=== PATIENT | female | born 1990 | race African-American/Black ===

== ENCOUNTER 2021-01-15 19:31 | Emergency (ER) | payer MEDICAID ==
[~2021-01-15] VITALS: Ht 165.1 cm; Wt 66.0 kg
[2021-01-15 19:42] VITALS: BP 120/78
[2021-01-15] MEDS ORDERED: TETANUS, DIPHTHERIA, PERTUSSIS VAC/PF 0.5ML (>7YR OLD) IM ONE (20:00)
[2021-01-15] MEDS ORDERED: GABA-532 MT (21:24)
[2021-01-15] MEDS ORDERED: AMOX-424 MT (21:24)
== END 2021-01-15 22:00 | disposition home or self-care (01) ==
LOC: ER 19:31
DX: S60.811A Abrasion of right wrist, initial encounter (principal); Z98.890 Other specified postprocedural states; W50.3XXA Accidental bite by another person, initial encounter; Y93.89 Activity, other specified; Y92.89 Other specified places as the place of occurrence of the external cause; Y99.8 Other external cause status
CPT/HCPCS: 73090; 81025; 82962; 90471; 90715; 96372; 99283

== ENCOUNTER 2021-04-11 18:34 | Emergency (ER) | payer MEDICAID ==
[~2021-04-11] VITALS: Ht 165.1 cm; Wt 63.0 kg
[~2021-04-11 18:34] MED LIST: AMOX-424 MT; GABA-532 MT
[2021-04-11] MEDS ORDERED: PHENAZOPYRIDINE HCL 100MG TABLET PO ONE (20:45)
[2021-04-11] MEDS ORDERED: NITROFURANTOIN 100MG M/M CAPSULE PO ONE (20:45)
[2021-04-11 20:47] LABS: CLARITY URINE CLOUDY (CLEAR); COLOR URINE YELLOW (YELLOW); KETONES URINE NEGATIVE (NEGATIVE); LEUKOCYTE ESTERASE URINE 3+ (NEGATIVE); NITRITE URINE NEGATIVE (NEGATIVE); OCCULT BLOOD URINE TRACE (NEGATIVE); PH URINE 6.5 (4.5-8.0); PROTEIN URINE TRACE (NEGATIVE); UROBILINOGEN URINE 0.2 E.U./dL (0.2-1.0)
[2021-04-11 20:58] LABS: UCG SCREEN NEGATIVE
[2021-04-11] MEDS ORDERED: NITROFURANTOIN 100MG M/M CAPSULE PO NR (21:00)
[2021-04-11] MEDS ORDERED: NITR-87 MT (21:10)
[2021-04-11] MEDS ORDERED: PHEN-909 MT (21:11)
[2021-04-11 21:15] VITALS: BP 116/78
== END 2021-04-11 21:20 | disposition home or self-care (01) ==
LOC: ER 18:34
DX: N39.0 Urinary tract infection, site not specified (principal); R03.0 Elevated blood-pressure reading, without diagnosis of hypertension
CPT/HCPCS: 81003; 81025; 87077; 87186; 99283